=== PATIENT | female | born 1965 | race Caucasian/White ===

== ENCOUNTER 2018-12-15 12:12 | Emergency (ER) | payer OTHER ==
[~2018-12-15] VITALS: Wt 59.9 kg
[~2018-12-15 12:12] MED LIST: DICL50TA11 PO; HYDR-906 PO
[2018-12-15] MEDS ORDERED: KETOROLAC 15 MG INJ IV STA (20:32)
[2018-12-15] MEDS ORDERED: ONDANSETRON 4 MG INJ IV STA (20:32)
[2018-12-15] MEDS ORDERED: SOD CHLORIDE 0.9% 1,000 ML IV STA (20:32)
[2018-12-15] MEDS ORDERED: BELLADONNA/PHENOBARBITAL TAB PO STA (20:32)
[2018-12-15] MEDS ORDERED: LIDOCAINE/MYLANTA 40 ML BTL PO STA (20:32)
[2018-12-15] MEDS ORDERED: CEPH-443 PO (21:14)
[2018-12-15] MEDS ORDERED: IBUP-1542 PO (21:14)
[2018-12-15] MEDS ORDERED: CEPHALEXIN 500 MG CAP PO ONE (21:30)
[2018-12-15] MEDS ORDERED: LYR75 PO (21:32)
[2018-12-15] MEDS ORDERED: [UNRECOGNIZED DRUG - OTHER] PO (21:38)
--- NOTE | 2018-12-15 22:01 | ERD ---
ER Documentation Chief Complaint Chief Complaint AP TODAY HPI This is a 53-year-old woman complaining of left lower quadrant and suprapubic pain times 1 day. She denies back or flank pain, no fevers or chills, no complaints of chest pain or shortness of breath. She states the pain is been constant nonradiating and nonexertional ROS All systems reviewed and are negative except as per history of present illness. Medications Home Meds Active Scripts Ibuprofen* (Motrin*) 600 Mg Tab, 600 MG PO Q8 PRN for PAIN AND/OR INFLAMMATION, #30 TAB Prov:PAUL TRAN MD 12/15/18 Cephalexin* (Keflex*) 500 Mg Capsule, 500 MG PO QID for 5 Days, CAP Prov:PAUL TRAN MD 12/15/18 Reported Medications [Kreadex 2.5MG/1ML] No Conflict Check, 1 DROP PO BID 12/15/18 Pregabalin* (Lyrica*) 75 Mg Capsule, 75 MG PO DAILY, CAP 12/15/18 Discontinued Scripts Hydrocodone Bit-Acetaminophen ([place]) 5-325 Mg Tablet, 1 TAB PO Q6 PRN for PAIN, #7 TAB Prov:KURT ROCHA DO 11/06/15 Diclofenac Sodium* (Diclofenac Sodium*) 50 Mg Tablet.dr, 50 MG PO TID for PAIN, #10 TAB Prov:KURT ROCHA DO 11/06/15 Allergies Allergies: Coded Allergies: No Known Allergy (Unverified , 12/15/18) PMhx/Soc History of Surgery: Yes (hysterectomy) Anesthesia Reaction: No Hx Neurological Disorder: No Hx Respiratory Disorders: No Hx Cardiac Disorders: No Hx Psychiatric Problems: Yes (anxiety, depression) Hx Miscellaneous Medical Probl: No Hx Alcohol Use: No Hx Substance Use: No Hx Tobacco Use: No Smoking Status: Never smoker FmHx Family History: No diabetes Physical Exam Vitals Vital Signs Date Temp Pulse Resp B/P (MAP) Pulse Ox O2 O2 Flow FiO2 Time Delivery Rate 12/15/18 56 15 170/86 100 Room Air 20:10 (114) 12/15/18 97.7 73 18 185/100 99 12:21 (128) Physical Exam GENERAL: Well-developed, well-nourished, well-hydrated, in no apparent distress, looks nontoxic in appearance HEENT: Moist mucous membranes, pink conjunctiva, no cervical spine tenderness or step-off deformities, no goiter, no jaundice or icterus, extraocular movements intact without pain. No submandibular induration, and no pharyngeal erythema NEURO: Alert and oriented 3, cranial nerves II through XII intact bilaterally, pupils equal round reactive to light, no focal deficits or facial asymmetry, sensation intact distally Strength 5/5 in upper and lower extremities bilaterally CARDIAC: Regular rate and rhythm, no murmurs rubs or gallops LUNGS: Clear bilaterally no wheezing crackles or stridor ABDOMEN: Soft nontender, no guarding, no rigidity, no rebound, no psoas sign no obturator sign. Normoactive bowel sounds SKIN: Warm and dry to touch, no abrasions, contusions, or hematomas, no lacerations, no ecchymosis, no target lesions, and without ulcers EXTREMITIES: No clubbing cyanosis or edema, calves are bilaterally symmetrical, no Homans sign, no popliteal cord sign. Distal pulses equal and bilateral PSYCH: Normal affect without agitation or irritability Result Diagram: 12/15/18203512/15/182035 Results 24 hrs Laboratory Tests Test 12/15/18 20:36 White Blood Count 7.0 10^3/ul Red Blood Count 5.00 10^6/ul Hemoglobin 15.0 g/dl Hematocrit 45.9 % Mean Corpuscular Volume 91.8 fl Mean Corpuscular Hemoglobin 30.0 pg Mean Corpuscular Hemoglobin Concent 32.7 g/dl Red Cell Distribution Width 12.0 % Platelet Count 237 10^3/UL Mean Platelet Volume 10.9 fl Immature Granulocytes % 0.100 % Neutrophils % 66.4 % Lymphocytes % 22.3 % Monocytes % 8.5 % Eosinophils % 2.1 % Basophils % 0.6 % Nucleated Red Blood Cells % 0.0 /100WBC Immature Granulocytes # 0.010 10^3/ul Neutrophils # 4.6 10^3/ul Lymphocytes # 1.6 10^3/ul Monocytes # 0.6 10^3/ul Eosinophils # 0.2 10^3/ul Basophils # 0.0 10^3/ul Nucleated Red Blood Cells # 0.0 10^3/ul Urine Color STRAW Urine Clarity CLEAR Urine pH 8.0 Urine Specific [place] 1.003 Urine Ketones NEGATIVE mg/dL Urine Nitrite NEGATIVE mg/dL Urine Bilirubin NEGATIVE mg/dL Urine Urobilinogen NEGATIVE mg/dL Urine Leukocyte Esterase 1+ Jeremy/ul Urine Microscopic RBC 0 /HPF Urine Microscopic WBC 9 /HPF Urine Bacteria FEW /HPF Urine Hemoglobin NEGATIVE mg/dL Urine Glucose NEGATIVE mg/dL Urine Total Protein NEGATIVE mg/dl Sodium Level 142 mmol/L Potassium Level 3.5 mmol/L Chloride Level 101 mmol/L Carbon Dioxide Level 31 mmol/L Anion Gap 10 Blood Urea Nitrogen 10 mg/dl Creatinine 0.46 mg/dl Est Glomerular Filtrat Rate mL/min > 60 mL/min Glucose Level 77 mg/dl Calcium Level 9.7 mg/dl Total Bilirubin 0.2 mg/dl Direct Bilirubin 0.00 mg/dl Indirect Bilirubin 0.2 mg/dl Aspartate Amino Transf (AST/SGOT) 29 IU/L Alanine Aminotransferase (ALT/SGPT) 26 IU/L Alkaline Phosphatase 104 IU/L Total Protein 7.5 g/dl Albumin 4.4 g/dl Globulin 3.10 g/dl Albumin/Globulin Ratio 1.41 Lipase 117 U/L Current Medications Medications Dose Sig/Noé Start Time Status Last (Trade) Ordered Route PRN Stop Time Admin Dose Reason Admin Sodium 1,000 ml @ Q1H STAT 12/15/18 DC 12/15/18 Chloride 1,000 mls/hr IV 20:32 20:51 12/15/18 21:31 Ondansetron 4 mg ONCE STAT 12/15/18 DC 12/15/18 HCl (Zofran IV 20:32 20:50 Inj) 12/15/18 20:33 40 ml ONCE STAT 12/15/18 DC 12/15/18 Miscellaneous PO 20:32 20:50 Medication 12/15/18 20:33 (Gi Cocktail (2)) [place]/ 2 tab ONCE STAT 12/15/18 DC 12/15/18 Phenobarbital PO 20:32 20:51 () 12/15/18 20:33 Ketorolac 15 mg ONCE STAT 12/15/18 DC 12/15/18 Tromethamine IV 20:32 20:51 (Toradol) 12/15/18 20:33 Cephalexin 500 mg ONCE ONCE 12/15/18 DC 12/15/18 (Keflex) PO 21:30 21:28 12/15/18 21:31 Procedures/MDM IV line was established patient was placed on phototypesetting equipment monitor rhythm strip revealed a sinus rhythm at about 80 bpm with upright P and T waves. Patient was afebrile I administered 1 L normal saline IV, Toradol 15 mg IV, GI cocktail p.o., Zofran 4 mg IV CBC and electrolytes were normal, liver function tests were normal, urine analysis was positive for infection. Cephalexin 500 mg p.o. was administered in the ER Patient's vital signs are normal and her abdominal exam was benign. She has early UTI will be treated as an outpatient. Differential diagnoses considered, included but not limited to acute coronary syndrome, pulmonary embolism, aortic dissection, abdominal aortic aneurysm, sepsis, stroke, meningitis, encephalitis, pneumonia, appendicitis, cholecystitis, bowel obstruction, pyelonephritis, nephrolithiasis, cystitis, as well as metabolic, hematologic, and electrolyte abnormalities. As well as abscess, cellulitis, fractures, and dislocations. Patient feels much better at this time, and vital signs are normal, symptoms have improved. I did give strict instructions to return to the ED if symptoms continue or worsen, patient will otherwise follow-up with primary care physician . Patient understood instructions and agreed to plan. Disclaimer: Inadvertent spelling and grammatical errors are likely due to EHR/dictation software use and do not reflect on the overall quality of patient care. Also, please note that the electronic time recorded on this note does not necessarily reflect the actual time of the patient encounter. Departure Diagnosis: Primary Impression: Acute UTI Condition: Good Patient Instructions: Bladder Infection, Female (Adult) PAUL TRAN MD Dec 15, 2018 22:01
[2018-12-15 22:22] VITALS: BP 151/77; PULSE 51; RESP 16
== END 2018-12-15 22:35 | disposition home or self-care (01) ==
LOC: E/R 12:12
DX: N39.0 Urinary tract infection, site not specified (principal)
CPT/HCPCS: 36415; 80053; 81001; 83690; 85025; 96374; 96375; 99284; J1885; J2405; J7030

== ENCOUNTER 2018-12-20 07:54 | Emergency (ER) | payer OTHER ==
[~2018-12-20] VITALS: Ht 157.5 cm; Wt 59.6 kg
[~2018-12-20 07:54] MED LIST changes: +CEPH-443 PO; -DICL50TA11 PO; -HYDR-906 PO; +IBUP-1542 PO; +LYR75 PO; +[UNRECOGNIZED DRUG - OTHER] PO
[2018-12-20 07:56] VITALS: Ht 157.5 cm; Wt 59.6 kg
[2018-12-20] MEDS ORDERED: ONDANSETRON 4 MG INJ IV STA (08:52)
[2018-12-20] MEDS ORDERED: HYDROmorphONE 1 MG/ML SYG IV STA (08:52)
[2018-12-20] MEDS ORDERED: SOD CHLORIDE 0.9% 1,000 ML IV STA (08:52)
--- NOTE | 2018-12-20 12:00 | ERD ---
ER Documentation Chief Complaint Chief Complaint Complains of left lower abdominal pain x 1 week HPI This is a 53-year-old female complains of left abdominal pain for a week. Pain is dull and aching off and on. Become more constant now kind of hurts to walk and roll over in bed. No fever no nausea vomiting diarrhea no back pain or hematuria or dysuria. Pain is become more consistent over the past 2 days ROS All systems reviewed and are negative except as per history of present illness. Medications Home Meds Active Scripts Ibuprofen* (Motrin*) 600 Mg Tab, 600 MG PO Q8 PRN for PAIN AND/OR INFLAMMATION, #30 TAB Prov:PAUL TRAN MD 12/15/18 Cephalexin* (Keflex*) 500 Mg Capsule, 500 MG PO QID for 5 Days, CAP Prov:PAUL TRAN MD 12/15/18 Reported Medications [Kreadex 2.5MG/1ML] No Conflict Check, 1 DROP PO BID 12/15/18 Pregabalin* (Lyrica*) 75 Mg Capsule, 75 MG PO DAILY, CAP 12/15/18 Discontinued Scripts Hydrocodone Bit-Acetaminophen ([place]) 5-325 Mg Tablet, 1 TAB PO Q6 PRN for PAIN, #7 TAB Prov:KURT ROCHA DO 11/06/15 Diclofenac Sodium* (Diclofenac Sodium*) 50 Mg Tablet.dr, 50 MG PO TID for PAIN, #10 TAB Prov:KURT ROCHA DO 11/06/15 Allergies Allergies: Coded Allergies: No Known Allergy (Unverified , 12/15/18) PMhx/Soc History of Surgery: Yes (hysterectomy) Anesthesia Reaction: No Hx Neurological Disorder: No Hx Respiratory Disorders: No Hx Cardiac Disorders: No Hx Psychiatric Problems: Yes (anxiety, depression) Hx Miscellaneous Medical Probl: No Hx Alcohol Use: No Hx Substance Use: No Hx Tobacco Use: No Smoking Status: Never smoker FmHx Family History: No coronary disease Physical Exam Vitals Vital Signs Date Temp Pulse Resp B/P (MAP) Pulse Ox O2 O2 Flow FiO2 Time Delivery Rate 12/20/18 97.1 82 20 179/84 99 07:56 (115) Physical Exam Const: Well-developed, well-nourished Head: Atraumatic, normocephalic Eyes: Normal Conjunctiva, PERRLA, EOMI, normal sclera, no nystagmus ENT: Normal External Ears, Nose and Mouth, moist mucus membranes. Neck: Full range of motion. No meningismus, no lymphadenopathy. Resp: Clear to auscultation bilaterally, no wheezing, rhonchi, rales Cardio: Regular rate and rhythm, no murmurs, S1 S2 present Abd: Soft, mild left lower quadrant tenderness, non distended. Normal bowel sounds, no guarding or rebound, no pulsitile abdominal masses or bruits Skin: No petechiae or rashes, no ecchymosis , no maculopapular rash Back: No midline or flank tenderness Ext: No cyanosis, or edema, FROM x 4, normal inspection, neurovascularly intact x 4 Neur: Awake and alert, STR 5/5 x 4, sensation intact x 4, no focal findings, cerebellum intact Psych: Normal Mood and Affect Result Diagram: 12/20/1890512/20/18 0906 Results 24 hrs Laboratory Tests Test 12/20/18 09:06 12/20/18 11:04 White Blood Count 7.0 10^3/ul Red Blood Count 4.84 10^6/ul Hemoglobin 14.6 g/dl Hematocrit 44.4 % Mean Corpuscular Volume 91.7 fl Mean Corpuscular Hemoglobin 30.2 pg Mean Corpuscular Hemoglobin Concent 32.9 g/dl Red Cell Distribution Width 12.2 % Platelet Count 232 10^3/UL Mean Platelet Volume 10.5 fl Immature Granulocytes % 0.100 % Neutrophils % 81.2 % Lymphocytes % 13.6 % Monocytes % 4.3 % Eosinophils % 0.7 % Basophils % 0.1 % Nucleated Red Blood Cells % 0.0 /100WBC Immature Granulocytes # 0.010 10^3/ul Neutrophils # 5.7 10^3/ul Lymphocytes # 1.0 10^3/ul Monocytes # 0.3 10^3/ul Eosinophils # 0.1 10^3/ul Basophils # 0.0 10^3/ul Nucleated Red Blood Cells # 0.0 10^3/ul Sodium Level 142 mmol/L Potassium Level 4.0 mmol/L Chloride Level 104 mmol/L Carbon Dioxide Level 30 mmol/L Anion Gap 8 Blood Urea Nitrogen 12 mg/dl Creatinine 0.56 mg/dl Est Glomerular Filtrat Rate mL/min > 60 mL/min Glucose Level 105 mg/dl Calcium Level 9.5 mg/dl Total Bilirubin 0.1 mg/dl Direct Bilirubin 0.00 mg/dl Indirect Bilirubin 0.1 mg/dl Aspartate Amino Transf (AST/SGOT) 31 IU/L Alanine Aminotransferase (ALT/SGPT) 25 IU/L Alkaline Phosphatase 97 IU/L Total Protein 7.3 g/dl Albumin 4.2 g/dl Globulin 3.10 g/dl Albumin/Globulin Ratio 1.35 Serum HCG, Qualitative NEGATIVE Urine Color STRAW Urine Clarity CLEAR Urine pH 6.0 Urine Specific [place] 1.009 Urine Ketones NEGATIVE mg/dL Urine Nitrite NEGATIVE mg/dL Urine Bilirubin NEGATIVE mg/dL Urine Urobilinogen NEGATIVE mg/dL Urine Leukocyte Esterase 2+ Jeremy/ul Urine Microscopic RBC 1 /HPF Urine Microscopic WBC 6 /HPF Urine Squamous Epithelial Cells FEW /HPF Urine Bacteria FEW /HPF Urine Mucus FEW /HPF Urine Hemoglobin NEGATIVE mg/dL Urine Glucose NEGATIVE mg/dL Urine Total Protein NEGATIVE mg/dl Current Medications Medications Dose Sig/Noé Start Time Status Last (Trade) Ordered Route PRN Stop Time Admin Dose Reason Admin Sodium 1,000 ml @ Q1H STAT 12/20/18 DC 12/20/18 Chloride 1,000 mls/hr IV 08:52 09:09 12/20/18 09:51 1 mg ONCE STAT 12/20/18 DC 12/20/18 Hydromorphone IV 08:52 09:10 HCl 12/20/18 08:53 (Dilaudid) Ondansetron 4 mg ONCE STAT 12/20/18 DC 12/20/18 HCl (Zofran IV 08:52 09:09 Inj) 12/20/18 08:53 Procedures/MDM Ordering MD: KITTY VALLES DO Location: E/R Room/Bed: PROCEDURE: CT of the abdomen and pelvis without contrast CLINICAL INDICATION: Abdominal pain. TECHNIQUE: Spiral CT images through the abdomen and pelvis without the use of oral and without the use of intravenous contrast. The administered radiation dose is CTDI 7.43 mGy and DLP 431.12 mGy-cm. One or more of the following dose reduction techniques were used: automated exposure control, adjustment of the mA and/or kV according to patient size, or use of iterative reconstruction technique. DICOM images are available. COMPARISON: None. FINDINGS: The study is limited by lack of intravenous contrast. Lower thorax: Thin linear opacity suggesting atelectasis or scarring including dependently at the lung bases. Liver: The liver is unremarkable in appearance. Biliary: Fluid filled borderline prominent gallbladder without calcified gallstone, wall thickening or pericholecystic fat stranding.. No biliary ductal dilatation is seen. Pancreas: No peripancreatic fat stranding. There is a tiny radiodense focus, which appears to be metallic suggesting a small clip versus tiny calcification, in the pancreaticoduodenal groove. Note is also made of a large duodenal diverticulum, containing air and some debris without surrounding fat stranding or wall thickening, inferior to the level of the ampulla. Spleen: The spleen is unremarkable in appearance Adrenal glands: Unremarkable in appearance. No focal nodule.. Genitourinary: No hydronephrosis or renal calculi are seen.. Mildly distended otherwise unremarkable urinary bladder. Gastrointestinal Tract: Evaluation is more limited in the absence of contrast. Mild amount of colonic stool throughout, and there is also some stool or debris within small bowel loops in the right mid and lower abdomen, without associated wall thickening or adjacent fat stranding, perhaps transient or on the basis of hypomotility. No focal transition is identified to suggest the presence of intestinal obstruction, nor obvious localizing inflammatory changes seen.. The appendix is unremarkable in appearance. Lymph nodes: No adenopathy is seen... Vascular structures: Trace left internal iliac arterial calcification. No abdominal aortic aneurysm. Peritoneal cavity: No free air, free or loculated fluid seen.. Reproductive Organs: Post hysterectomy. The adnexa are symmetric.. Soft tissues: Tiny fat containing right inguinal hernia. Musculoskeletal: Mild lower lumbar dextroscoliosis. Degenerative changes in the lower lumbar spine and likely accounting for bilateral SI joint subchondral sclerosis.. No acute or aggressive appearing osseous abnormality.. IMPRESSION: No definite acute intra-abdominal or pelvic abnormality including no evidence of urinary tract stone or secondary signs of urinary tract obstruction. Urinary bladder is mildly distended, otherwise unremarkable. No focal transition is seen to suggest the presence of intestinal obstruction. Stool/debris filled small bowel loops which may be transient or on the basis of hypomotility with mild amount of colonic stool throughout. Incidental finding of large duodenal diverticulum. Tiny radiodense focus in the pancreaticoduodenal groove, separate from the biliary ductal system, which may be a surgical clip if there has been previous intervention, or arterial vascular calcification. Depending upon the clinical scenario, short-term followup imaging with IV and enteric contrast enhanced CT could be considered if concern or symptoms persist. RPTAT: HSAF Zari Brennan Physician Date Time Electronically viewed and signed by Zari Brennan Physician on 12/20/2018 10:11 RF/ CC: KITTY VALLES DO [phone] Patient has a very small urinary tract infection. No evidence of diverticulitis, ureterolithiasis, and no pelvic free fluid to suggest ruptured cyst on the ovary. She may be having some spasm to the ureter from UTI or may have a tiny kidney stone that is passing out or passed is not picked up on CT. We will treat with Cipro and some Flomax Departure Diagnosis: Primary Impression: Abdominal pain Abdominal location: left lower quadrant Qualified Codes: R10.32 - Left lower quadrant pain Condition: Stable KITTY VALLES DO Dec 20, 2018 12:00
[2018-12-20] MEDS ORDERED: HYDR-4011 PO (12:02)
[2018-12-20] MEDS ORDERED: TAMS-14 PO (12:02)
[2018-12-20] MEDS ORDERED: CIPR500T4 PO (12:02)
[2018-12-20 12:18] VITALS: BP 131/78; PULSE 96; RESP 18
== END 2018-12-20 12:19 | disposition home or self-care (01) ==
LOC: E/R 07:54
DX: R10.32 Left lower quadrant pain (principal)
CPT/HCPCS: 74176; 80053; 81001; 84703; 85025; J1170; J2405; J7030; 36415; 96374; 96375

== ENCOUNTER 2019-07-05 03:48 | Emergency (ER) | payer OTHER ==
[~2019-07-05] VITALS: Ht 162.6 cm; Wt 55.2 kg
[~2019-07-05 03:48] MED LIST changes: +CIPR500T4 PO; +FAMO-96 PO; +HYDR-4011 PO; +ONDA4TAB8 PO; +TAMS-14 PO
[2019-07-05 03:49] VITALS: Ht 162.6 cm; Wt 55.2 kg
[2019-07-05] MEDS ORDERED: SOD CHLORIDE 0.9% 1,000 ML IV STA (04:17)
[2019-07-05] MEDS ORDERED: ONDANSETRON 4 MG INJ IV STA (04:17)
[2019-07-05] MEDS ORDERED: morphine 2 MG INJ IV STA (04:17)
[2019-07-05] MEDS ORDERED: IOHEXOL 300MG/ML 150 ML BTL ONE (05:37)
[2019-07-05] MEDS ORDERED: SOD CHLORIDE 0.9% 100 ML ONE (05:37)
[2019-07-05] MEDS ORDERED: METOCLOPRAMIDE 10 MG INJ IV ONE (06:00)
[2019-07-05 06:36] VITALS: BP 133/79; PULSE 55; RESP 18
== END 2019-07-05 06:52 | disposition home or self-care (01) ==
LOC: FTE 03:48
DX: R10.31 Right lower quadrant pain (principal); R11.2 Nausea with vomiting, unspecified
CPT/HCPCS: 36415; 74177; 80053; 81001; 83690; 85025; 96361; 96374; 96375; 99285; J2270; J2405; J2765; J7030; Q9967

== ENCOUNTER 2019-07-27 08:53 | Emergency (ER) | payer OTHER ==
[~2019-07-27] VITALS: Ht 154.9 cm; Wt 64.0 kg
[2019-07-27 09:00] VITALS: Ht 154.9 cm; Wt 64.0 kg
[2019-07-27] MEDS ORDERED: SOD CHLORIDE 0.9% 1,000 ML IV STA (09:24)
[2019-07-27] MEDS ORDERED: ONDANSETRON 4 MG INJ IV STA (09:24)
[2019-07-27 11:01] VITALS: BP 138/84; PULSE 78; RESP 18
== END 2019-07-27 11:03 | disposition home or self-care (01) ==
LOC: E/R 08:53
DX: R53.1 Weakness (principal)
CPT/HCPCS: 36415; 80053; 81001; 83690; 84484; 85025; 93005; 96374; 99284; J2405; J7030